=== PATIENT | female | born 1950 | race Two or more races ===

== ENCOUNTER 2020-10-05 05:21 | Emergency (ER) | payer MEDICARE, SELFPAY ==
[2020-10-05 05:22] VITALS: BP 170/72; PULSE 73; RESP 18; TEMP 36.6; O2SAT 97; BMI 23.2
--- NOTE | 2020-10-05 05:37 | CT_ITS ---
HISTORY: Injury Pain ADDITIONAL HISTORY: Fall with loss of consciousness. Laceration to the left posterior head. COMPARISON: None EXAMINATION/TECHNIQUE: CT Head or Brain W/O Contrast Injection. Axial, coronal and sagittal images. Number of images including paperwork: 230. A radiation dose optimization technique was used for this scan. FINDINGS: BRAIN: No acute hemorrhage or mass. No definite acute infarct; MRI more sensitive. VENTRICULAR SYSTEM: No hydrocephalus. PARANASAL SINUSES AND MASTOIDS: No air-fluid level in the imaged extent. Mild mucosal thickening noted. ORBITS: Unremarkable imaged extent. SKELETON AND SOFT TISSUES: Calvarium intact. Left parietal scalp laceration. ASPECTS score: Not applicable. CT/Brain/Head without Contrast IMPRESSION: No acute intracranial abnormality. Individualized dose optimization techniques were used for this CT. at 0613 Reported and signed by: Rema Mcgovern MD Electronically Signed: Rema Mcgovern MD at 6:13 EST Tel , Service support ,
[2020-10-05] MEDS: fentaNYL 100 MCG/2 ML Ampul 50 MCG IM (06:02)
[2020-10-05] MEDS: Ondansetron ODT 4 MG Tablet PO (06:02)
--- NOTE | 2020-10-05 06:22 | ED.VISSUMM ---
- ER Visit Summary Date of Service: 10/05/20 Chief Complaint: Fall and scalp laceration History of Present Illness: The patient is a [address] Solares. Patient reports that she tripped over humidifier and hit her head on a wooden chair. She did not immediately have a loss of consciousness. Her son helped her back into bed and she was sitting on the side and approximately 10 minutes later had loss of consciousness for approximately 1 second. Patient's not on anticoagulants. Denies any neck, back, shoulder, wrist, or hip pain. Her tetanus is up-to-date. Physical Examination: Vitals: Stable. Afebrile. Head: 1 cm laceration in the posterior parietal area on the left. No active bleeding. Neck: No vertebral tenderness. Full ROM without difficulty. Cleared by NEXUS criteria. Back: No vertebral tenderness. General: A&O x 3. NAD. Cardiovascular exam: Regular rate and rhythm, no murmur, rub or gallop. Respiratory exam: Chest nontender. No crepitus. Clear to auscultation bilaterally. No wheezes or stridor. Abdominal exam: Soft, nontender, nondistended, normal bowel sounds. No pain in RUQ or LUQ specifically. No peritoneal signs. Extremity: Atraumatic. No pain with range of motion. Test Results: Clinical Impression(s) from Imaging Studies Brain CT 10/05/20 05:37 IMPRESSION: No acute intracranial abnormality. Individualized dose optimization techniques were used for this CT. at 0613 Reported and signed by: Rema Mcgovern MD Electronically Signed: Rema Mcgovern MD at 6:13 EST Tel , Service support , Emergency Department Course and Treatment: Patient was given a dose of fentanyl IM and Zofran p.o. She is resting comfortably. I had a prolonged discussion with the patient and her son about options for the laceration. She has decided to let this heal by secondary intention. I feel that is a reasonable course of action. Treatment Plan: Patient be discharged instructions to follow-up with her primary care physician within a week for another exam. Concussion precautions were discussed. Return to the emergency department for any worsening symptoms. Disposition: To home in improved and stable condition. Impression: 1. Fall. 2. Scalp laceration, 1 cm, not repaired. 3. Concussion. This note was generated with [employer] dictation software. It may contain incorrect words, spelling, and punctuation that were not noted in review of the chart prior to signing ED Disposition - Plan for ED Patient: Instructions: ED Concussion Prescriptions: Ondansetron [Zofran Odt] 4 mg PO Q8H PRN PRN #10 tablet PRN Reason: Nausea Referrals: Venita Valdez MD [Primary Care Provider] - 1 Week
[2020-10-05 06:35] VITALS: BP 165/78; PULSE 67; RESP 16; O2SAT 100
== END 2020-10-05 06:36 | disposition home or self-care (01) ==
PROVIDERS: Emergency Provider Emergency Medicine; PCP Internal Medicine
DX: S01.01XA Laceration without foreign body of scalp, initial encounter (principal); S06.0X9A Concussion with loss of consciousness of unspecified duration, initial encounter; W18.09XA Striking against other object with subsequent fall, initial encounter
CPT/HCPCS: 70450; 90715; 96372; 99284

== ENCOUNTER → 2025-06-26 | Outpatient (CLI) | payer MEDICARE, SELFPAY | END | disposition home or self-care (01) | LOC: LABSPEC 15:24 | PROVIDERS: PCP Internal Medicine; Referring Provider Otolaryngology Otolaryngology/Facial Plastic Surgery; Visit Provider Otolaryngology Otolaryngology/Facial Plastic Surgery | DX: J32.9 Chronic sinusitis, unspecified (principal) | CPT/HCPCS: 87070; 87205 ==